=== PATIENT | female | born 1940 | race Two or more races ===

== ENCOUNTER 2016-12-15 15:49 | Inpatient (IN) | payer OTHER ==
[~2016-12-15] VITALS: Ht 152.4 cm; Wt 74.5 kg
[~2016-12-15 15:49] MED LIST: CLOP75TA28 PO; LISI-275 PO; SIMV-8 PO
[2016-12-15 16:28] LABS: Basophils # (auto) 0.1 uL; Basophils % (auto) 0.8 % (0.0-2.0); CONDITION Y; Eosinophils # (auto) 0.2 uL; Eosinophils % (auto) 2.1 % (0.0-7.0); Hematocrit 43.4 % (36.0-46.0); Hemoglobin 14.5 g/dL (12.2-16.2); Lymphocytes # (auto) 3.5 uL; Mean Corpuscular Hemoglobin 31.7 pg (28.0-32.0); Mean Corpuscular Hgb Conc. 33.3 g/dL (32.0-36.0); Mean Platelet Volume 10.2 fL (7.4-10.4); Monocytes # (auto) 0.5 uL; Monocytes % (auto) 6.9 % (0.0-12.0); Neutrophils # (auto) 3.4 uL; Neutrophils % (auto) 44.2 % (37.0-80.0); Platelet Count (auto) 184 10^3/uL (140-450); Red Cell Distribution Width 13.1 % (11.6-16.0); White Blood Cell 7.7 10^3/uL (4.4-10.8)
[2016-12-15 16:39] LABS: Albumin 3.6 g/dL (3.4-5.0); Anion Gap 11 (5-15); Aspartate Aminotransferase 22 U/L (15-37); BUN/Creatinine Ratio 21.4; Blood Urea Nitrogen 21 mg/dL (7-18); Carbon Dioxide 26 mmol/L (21-32); Chloride 104 mmol/L (98-107); GFR African American 71 mL/min; GFR Non-African American 59 mL/min; Glucose 97 mg/dL (74-106); Magnesium 2.4 mg/dL (1.6-2.6); Potassium 4.2 mmol/L (3.5-5.1); Sodium 141 mmol/L (136-145)
[2016-12-15 16:44] LABS: Alkaline Phosphatase 108 U/L (45-117); Bilirubin, Total 0.5 mg/dL (0.2-1.0); Total Protein 7.5 g/dL (6.4-8.2)
[2016-12-15] MEDS ORDERED: NITROGLYCERIN 0.4 MG SL TAB SL PRN (19:30)
[2016-12-15] MEDS ORDERED: PROMETHAZINE HCL 25 MG/ML 1ML IV PRN (19:30)
[2016-12-15] MEDS ORDERED: LORazepam 0.5 MG TAB PO PRN (19:30)
[2016-12-15] MEDS ORDERED: LACTULOSE 20Gm/30ML SOLN PO PRN (19:30)
[2016-12-15] MEDS ORDERED: MORPHINE SULF INJ 2 MG/ML SYRINGE 1ML IV PRN ×3 (19:30)
[2016-12-15] MEDS ORDERED: DEXTROSE (50%) 50ML SYRG IV PRN (19:30)
[2016-12-15] MEDS: ACETAMINOPHEN 500 MG TAB PO PRN (20:30)
[2016-12-15 20:35] LABS: Temperature: 22.7 C (20.0-25.0)
[2016-12-15 21:00] VITALS: BP 158/57
[2016-12-15 21:15] VITALS: BP 158/57
[2016-12-15] MEDS: ATORVASTATIN 20 MG TAB PO SCH (21:32)
[2016-12-15] MEDS: LISINOPRIL 5 MG TAB PO SCH (21:32)
[2016-12-15] MEDS: InsuLIN REG 1unit/0.01ml Soln (100units/ml) SC SCH (22:00)
[2016-12-15] MEDS: ACCU-CHEK COMFORT CURVE STRIP VI SCH (22:10)
[2016-12-16] MEDS ORDERED: MULT1TAB65 PO (02:08)
[2016-12-16] MEDS ORDERED: METF-370 PO (02:08)
[2016-12-16] MEDS ORDERED: BROM5CAP PO (02:08)
[2016-12-16] MEDS ORDERED: EMPA1TAB PO (02:08)
[2016-12-16 04:43] VITALS: BP 118/76
[2016-12-16] MEDS: InsuLIN REG 1unit/0.01ml Soln (100units/ml) SC SCH ×4 (06:53→22:30)
[2016-12-16] MEDS: ACCU-CHEK COMFORT CURVE STRIP VI SCH ×4 (06:53→22:30)
[2016-12-16 08:43] VITALS: BP 119/77
[2016-12-16] MEDS: LISINOPRIL 5 MG TAB PO SCH ×2 (10:00→22:29)
[2016-12-16] MEDS: ASPirin 81 mg TAB PO SCH (10:05)
[2016-12-16] MEDS: ENOXAPARIN SOD 40 MG/0.4 ML SYRINGE SC SCH (10:05)
[2016-12-16] MEDS: CLOPIDOGREL BISULFATE 75 MG TAB PO SCH (10:06)
[2016-12-16] MEDS: BROMOCRIPTINE 5 MG PO SCH (10:49)
[2016-12-16 13:00] VITALS: BP 118/65
[2016-12-16] MEDS: ACETAMINOPHEN 500 MG TAB PO PRN (14:12)
[2016-12-16] MEDS: SODIUM CHLORIDE 0.9% 1,000 ML IV SCH ×2 (14:50→23:12)
[2016-12-16 16:28] VITALS: BP 124/53
[2016-12-16 21:46] VITALS: BP 127/55
[2016-12-16] MEDS: ATORVASTATIN 20 MG TAB PO SCH (22:30)
[2016-12-16] MEDS: ACETAMINOPHEN 325 MG TAB PO PRN (22:31)
[2016-12-16] MEDS: TEMAZEPAM 15 MG CAP PO PRN (22:37)
[2016-12-17 04:48] VITALS: BP 103/58
[2016-12-17] MEDS: InsuLIN REG 1unit/0.01ml Soln (100units/ml) SC SCH ×4 (06:16→22:21)
[2016-12-17] MEDS: ACCU-CHEK COMFORT CURVE STRIP VI SCH ×4 (06:16→22:21)
[2016-12-17] MEDS: SODIUM CHLORIDE 0.9% 1,000 ML IV SCH ×3 (06:16→22:21)
[2016-12-17] MEDS: ACETAMINOPHEN 325 MG TAB PO PRN ×3 (06:17→20:16)
[2016-12-17 08:30] VITALS: BP 122/59
[2016-12-17] MEDS: ENOXAPARIN SOD 40 MG/0.4 ML SYRINGE SC SCH (09:57)
[2016-12-17] MEDS: CLOPIDOGREL BISULFATE 75 MG TAB PO SCH (09:59)
[2016-12-17] MEDS: LISINOPRIL 5 MG TAB PO SCH ×2 (09:59→22:00)
[2016-12-17] MEDS: ASPirin 81 mg TAB PO SCH (09:59)
[2016-12-17] MEDS: BROMOCRIPTINE 5 MG PO SCH (10:00)
[2016-12-17] MEDS ORDERED: JARDIANCE 10MG PO SCH ×2 (10:00)
[2016-12-17 10:23] LABS: Urine RBC None Seen /hpf (0 - 4)
[2016-12-17 10:36] LABS: Urine Bilirubin Negative (Negative); Urine Blood Negative /uL (Negative); Urine Glucose 4+ mg/dL (Normal); Urine Ketone Negative (Negative); Urine Nitrite Negative (Negative); Urine Squamous Epithelial Cell FEW /hpf (<5); Urine Urobilinogen Normal (Negative); Urine pH 5.5 (5.0-8.0)
[2016-12-17 10:38] LABS: Urine Color Yellow (Yellow)
[2016-12-17 12:59] VITALS: BP 123/47
[2016-12-17 16:45] VITALS: BP 117/57
[2016-12-17 22:00] VITALS: BP 109/54
[2016-12-17] MEDS: ATORVASTATIN 20 MG TAB PO SCH (22:20)
[2016-12-17] MEDS: TEMAZEPAM 15 MG CAP PO PRN (22:22)
[2016-12-18 03:20] VITALS: BP 109/54
[2016-12-18 04:59] VITALS: BP 123/46
[2016-12-18] MEDS: InsuLIN REG 1unit/0.01ml Soln (100units/ml) SC SCH (06:38)
[2016-12-18] MEDS: SODIUM CHLORIDE 0.9% 1,000 ML IV SCH (06:38)
[2016-12-18] MEDS: ACCU-CHEK COMFORT CURVE STRIP VI SCH (06:39)
[2016-12-18] MEDS: ACETAMINOPHEN 325 MG TAB PO PRN (06:40)
[2016-12-18 08:27] VITALS: BP 101/54
== END 2016-12-18 11:30 | disposition home health service (06) | DRG 65 ==
LOC: ER 15:55 → TELE 15:56 → TELE-WESTW 21:00
PROVIDERS: ADMIT Internal Medicine; ATTEND Hospitalist
DX: I63.9 Cerebral infarction, unspecified (principal); G81.94 Hemiplegia, unspecified affecting left nondominant side; E11.9 Type 2 diabetes mellitus without complications; R00.1 Bradycardia, unspecified; I10 Essential (primary) hypertension; E03.9 Hypothyroidism, unspecified; E78.00 Pure hypercholesterolemia, unspecified; E78.5 Hyperlipidemia, unspecified; M19.90 Unspecified osteoarthritis, unspecified site; Z83.3 Family history of diabetes mellitus; Z82.49 Family history of ischemic heart disease and other diseases of the circulatory system; Z82.3 Family history of stroke; Z80.1 Family history of malignant neoplasm of trachea, bronchus and lung; Z80.9 Family history of malignant neoplasm, unspecified; Z86.73 Personal history of transient ischemic attack (TIA), and cerebral infarction without residual deficits; Z90.49 Acquired absence of other specified parts of digestive tract; Z79.899 Other long term (current) drug therapy; Z90.710 Acquired absence of both cervix and uterus; Z90.89 Acquired absence of other organs; Z88.6 Allergy status to analgesic agent
CPT/HCPCS: 36415; 70450; 71010; 80053; 80307; 81001; 82550; 82607; 82746; 82962; 83036; 83735; 84443; 84484; 85025; 85652; 87081; 93005; 97163; J1815

== ENCOUNTER 2017-03-25 15:54 | Emergency (ER) | payer OTHER ==
[~2017-03-25] VITALS: Ht 152.4 cm; Wt 55.3 kg
[~2017-03-25 15:54] MED LIST changes: +BROM5CAP PO; +EMPA1TAB PO; +METF-370 PO; +MULT1TAB65 PO
[2017-03-25 19:38] VITALS: BP 124/38
== END 2017-03-25 19:55 | disposition home or self-care (01) ==
LOC: ER 15:58
DX: S46.912A Strain of unspecified muscle, fascia and tendon at shoulder and upper arm level, left arm, initial encounter (principal); R51 Headache; I10 Essential (primary) hypertension; E11.9 Type 2 diabetes mellitus without complications; E78.5 Hyperlipidemia, unspecified; M19.90 Unspecified osteoarthritis, unspecified site; W06.XXXA Fall from bed, initial encounter; Y93.89 Activity, other specified; Y92.89 Other specified places as the place of occurrence of the external cause; Y99.8 Other external cause status; Z90.49 Acquired absence of other specified parts of digestive tract; Z90.710 Acquired absence of both cervix and uterus; Z86.73 Personal history of transient ischemic attack (TIA), and cerebral infarction without residual deficits; Z79.899 Other long term (current) drug therapy
CPT/HCPCS: 70450; 72125; 72220; 73030; 73502; 93005

== ENCOUNTER 2018-11-02 22:38 | Inpatient (IN) | payer OTHER | END 2018-11-04 13:30 | disposition home or self-care (01) | LOC: TELE 22:39 → TELE-CENTR 11-03 05:56 → ER 22:38 | DX: R07.9 Chest pain, unspecified (principal); I48.2 Chronic atrial fibrillation; I10 Essential (primary) hypertension; R62.7 Adult failure to thrive ==

== ENCOUNTER 2023-03-05 09:53 | Emergency (ER) | payer OTHER ==
[~2023-03-05] VITALS: Ht 152.4 cm; Wt 70.3 kg
[~2023-03-05 09:53] MED LIST changes: +APIX5TAB OR; +ATOR80TA PO; -CLOP75TA28 PO; +DRON400T PO; +FOLI-119 PO; +LEVO25TA6 PO; +METH2.5T PO; -SIMV-8 PO; +TRAM-711 PO
[2023-03-05] MEDS ORDERED: TETANUS-DIPTH-ACEL PERTUSSIS 0.5ML SYR Tdap IM ONE (11:30)
[2023-03-05 14:14] VITALS: BP 135/43; PULSE 61; RESP 15; O2SAT 99
== END 2023-03-05 14:17 | disposition home or self-care (01) ==
LOC: ER 09:53
DX: S02.2XXA Fracture of nasal bones, initial encounter for closed fracture (principal); S80.212A Abrasion, left knee, initial encounter; M25.531 Pain in right wrist; W18.39XA Other fall on same level, initial encounter; Y93.89 Activity, other specified; Y92.098 Other place in other non-institutional residence as the place of occurrence of the external cause; Y99.8 Other external cause status
CPT/HCPCS: 70160; 90471; 90715

== ENCOUNTER 2023-10-21 19:24 | Emergency (ER) | payer OTHER ==
[~2023-10-21] VITALS: Ht 152.4 cm; Wt 75.3 kg
[2023-10-21 21:00] VITALS: BP 123/48; PULSE 60; RESP 16; TEMP 97.3; O2SAT 97
== END 2023-10-21 21:14 | disposition home or self-care (01) ==
LOC: ER 19:27
DX: S40.811A Abrasion of right upper arm, initial encounter (principal); S09.8XXA Other specified injuries of head, initial encounter; I10 Essential (primary) hypertension; E11.9 Type 2 diabetes mellitus without complications; E78.5 Hyperlipidemia, unspecified; Z90.49 Acquired absence of other specified parts of digestive tract; Z90.710 Acquired absence of both cervix and uterus; Z86.73 Personal history of transient ischemic attack (TIA), and cerebral infarction without residual deficits; Z88.6 Allergy status to analgesic agent; W18.39XA Other fall on same level, initial encounter; Y93.89 Activity, other specified; Y92.89 Other specified places as the place of occurrence of the external cause; Y99.8 Other external cause status
CPT/HCPCS: 70450

== ENCOUNTER 2024-02-09 11:23 | Emergency (ER) | payer OTHER ==
[~2024-02-09] VITALS: Ht 152.4 cm; Wt 70.0 kg
[2024-02-09 11:54] LABS: Basophils # (auto) 0.1 10 ^3/uL (0-0.2); Basophils % (auto) 0.7 % (0.0-2.0); Eosinophils # (auto) 0.1 10 ^3/uL (0-0.8); Eosinophils % (auto) 0.6 % (0.0-7.0); Hematocrit 41.1 % (36.0-46.0); Hemoglobin 13.8 g/dL (12.2-16.2); Lymphocytes # (auto) 1.6 10 ^3/uL (0.4-5.4); Lymphocytes % (auto) 16.1 % (10.0-50.0); Mean Corpuscular Hemoglobin 31.8 pg (28.0-32.0); Mean Corpuscular Hgb Conc. 33.6 g/dL (32.0-36.0); Mean Corpuscular Volume 94.5 fL (80.0-100.0); Monocytes # (auto) 0.5 10 ^3/uL (0-1.3); Monocytes % (auto) 5.3 % (0.0-12.0); Neutrophils # (auto) 7.5 10 ^3/uL (1.6-8.6); Neutrophils % (auto) 77.3 % (37.0-80.0); Nucleated Red Blood Cells % 0.1 %; Platelet Count (auto) 165 10^3/uL (140-450); Red Blood Cells 4.35 10^6/uL (4.0-5.20); Red Cell Distribution Width 14.6 % (11.8-14.3); White Blood Cell 9.7 10^3/uL (4.4-10.8)
[2024-02-09 12:05] LABS: Chloride 109 mmol/L (98-107); Potassium 5.3 mmol/L (3.5-5.1); Sodium 143 mmol/L (136-145)
[2024-02-09 12:05] LABS: Urine Bacteria None Seen /hpf (None Seen)
[2024-02-09 12:06] LABS: Anion Gap 8 (5-15); Carbon Dioxide 26 mmol/L (20-31)
[2024-02-09 12:07] LABS: Calcium 10.1 mg/dL (8.7-10.4)
[2024-02-09 12:12] LABS: BUN/Creatinine Ratio 23.5 (10.0-20.0); Blood Urea Nitrogen 24 mg/dL (9-23); Glucose 135 mg/dL (74-106)
[2024-02-09 12:18] LABS: Urine Blood Negative /uL (Negative); Urine Clarity Turbid (Clear); Urine Color Light-Yellow (Yellow); Urine Mucus FEW (None Seen); Urine Protein, UAD TRACE (Negative); Urine Specific Gravity 1.018 (1.001-1.035); Urine Urobilinogen Normal (Negative); Urine WBC 5 /hpf (0 - 5)
[2024-02-09] MEDS ORDERED: CIPR-173 PO (12:39)
[2024-02-09 13:36] VITALS: BP 150/58; PULSE 79; RESP 16; O2SAT 95
== END 2024-02-09 13:35 | disposition home or self-care (01) ==
LOC: ER 11:23
DX: E11.649 Type 2 diabetes mellitus with hypoglycemia without coma (principal); N39.0 Urinary tract infection, site not specified; I10 Essential (primary) hypertension; I48.91 Unspecified atrial fibrillation; E78.5 Hyperlipidemia, unspecified; I25.2 Old myocardial infarction; Z90.49 Acquired absence of other specified parts of digestive tract; Z90.710 Acquired absence of both cervix and uterus; Z95.0 Presence of cardiac pacemaker; Z88.5 Allergy status to narcotic agent; Z88.8 Allergy status to other drugs, medicaments and biological substances; Z79.84 Long term (current) use of oral hypoglycemic drugs; Z79.01 Long term (current) use of anticoagulants; Z79.899 Other long term (current) drug therapy; Z86.73 Personal history of transient ischemic attack (TIA), and cerebral infarction without residual deficits
CPT/HCPCS: 36415; 71046; 80048; 81001; 82962; 85025; 93005